=== PATIENT | female | born 1975 | race Caucasian/White ===

== ENCOUNTER → 2021-11-29 | Outpatient (CLI) | payer BC, OTHER ==
[~2021-11-29] MED LIST: HYDR-700 PO; PROP40TA5 PO
--- NOTE | 2021-11-29 14:42 | Diagnostic Imaging Report ---
INDICATION: COUGH COMPARISON: None FINDINGS: Frontal and lateral views of the chest demonstrate normal heart size and pulmonary vascularity. The lungs are hyperinflated, but are otherwise clear. There are no signs of infiltrate, pleural effusions or pneumothoraces. The visualized osseous structures show no acute abnormalities. IMPRESSION: 1. Hyper expanded appearance of the lungs. Correlation with obstructive process such as asthma is recommended. Otherwise, no evidence of failure or focal infiltrate. Dictated by: Dictated on workstation # [id number]
== END ==
LOC: RAD FS 13:15
PROVIDERS: ATTEND Nurse Practitioner Family
DX: R05.9 Cough, unspecified (principal)
CPT/HCPCS: 71046

== ENCOUNTER 2022-09-25 17:20 | Emergency (ER) | payer BC, OTHER ==
[~2022-09-25] VITALS: Ht 162 cm; Wt 45.0 kg
[2022-09-25] MEDS ORDERED: NS IV 1000 ML 1,000 ML IV STA (17:33)
--- NOTE | 2022-09-25 17:38 | ED Abdominal Pain ---
General Chief Complaint: Abdominal/GI Problems Stated Complaint: ABD PAIN Source of Information: Patient Exam Limitations: No Limitations History of Present Illness Date Seen by Provider: Sep 25, 2022 Time Seen by Provider: 17:23 Initial Comments 47-year-old female with past medical history of asthma, chronic abdominal pain, and frequent UTIs coming in due to abdominal pain. She states she was diagnosed with a UTI last week, finished her Bactrim yesterday, had continued symptoms, so was started on Macrobid. She has had 1 dose of this. Has constant nausea which is normal for her, worsening today. She took her last Zofran earlier today. She does smoke marijuana daily. Denies any current dysuria, urinary frequency, vaginal discharge or bleeding, chest pain, shortness of breath, diarrhea, focal weakness or numbness, fever, or any other concerns. Allergies and Home Medications Allergies Coded Allergies: Cephalexin Monohydrate (Verified Allergy, Unknown, 09/25/22) Penicillins (Verified Allergy, Unknown, 09/25/22) Patient Home Medication List Home Medication List Reviewed: Yes Hydroxyzine Hcl (Hydroxyzine 25 Mg Tablet) 25 Mg Tablet, 1-2 EACH PO Q4H PRN, (Reported) Entered as Reported by: RAINA KRUEGER on 09/18/11 105 Hyoscyamine Sulfate (Levsin-Sl) 0.125 Mg Tab.subl, 0.125 MG SL Q4H Prescribed by: DANNY STAFFORD on 09/25/221899 Ondansetron (Ondansetron Odt) 4 Mg Tab.rapdis, 4 MG SL Q6H PRN for NAUSEA/V OMITING-1ST LINE Prescribed by: DANNY STAFFORD on 09/25/221899 Pantoprazole Sodium (Pantoprazole Sodium) 40 Mg Tablet.dr, 40 MG PO DAILY Prescribed by: DANNY STAFFORD on 09/25/221899 Promethazine HCl (Promethazine Tablet) 25 Mg Tablet, 25 MG PO Q6H PRN for NAUSEA/VOMITING-2ND LINE Prescribed by: DANNY STAFFORD on 09/25/221899 Propranolol Hcl (Propranolol Hcl) 40 Mg Tablet, 40 MG PO BID, (Reported) Entered as Reported by: RAINA KRUEGER on 09/18/11 1051 Review of Systems Review of Systems Constitutional: No fever EENTM: No Blurred Vision Respiratory: No Symptoms Reported Cardiovascular: No Symptoms Reported Gastrointestinal: See HPI Genitourinary: No Symptoms Reported Musculoskeletal: no symptoms reported Skin: no symptoms reported Psychiatric/Neurological: No Symptoms Reported Endocrine: No Symptoms Reported Hematologic/Lymphatic: No Symptoms Reported All Other Systems Reviewed Negative Unless Noted: Yes Past Uhjtspj-Rvcqhr-Hoosko Hx Patient Social History Substance use?: Yes Substance type: Marijuana Alcohol Use?: No Past Medical History Surgeries: Yes Gallbladder, Tubal Ligation Reproductive Disorders: No Physical Exam Vital Signs Vital Signs - First Documented 09/25/22 17:38 Temp 36.7 Pulse 78 Resp 16 B/P (MAP) 125/93 (104) Pulse Ox 98 O2 Delivery Room Air Capillary Refill : Height/Weight/BMI Height: '" Weight: lbs. oz. kg; BMI Method:Stated General Appearance: WD/WN, mild distress HEENT: PERRL/EOMI, normal ENT inspection, pharynx normal Neck: non-tender, full range of motion, supple, normal inspection Respiratory: chest non-tender, lungs clear, normal breath sounds, no respiratory distress, no accessory muscle use Cardiovascular: regular rate, rhythm, no edema, no murmur Gastrointestinal: normal bowel sounds, soft; No distended, No guarding, No rebound; tenderness Extremities: normal range of motion, non-tender, normal inspection, no pedal edema, no calf tenderness, normal capillary refill Back: normal inspection, no CVA tenderness Neurologic/Psychiatric: no motor/sensory deficits, alert, normal mood/affect Skin: normal color, warm/dry Lymphatic: no adenopathy Progress/Results/Core Measures Results/Orders Lab Results Laboratory Tests Test 09/25/22 17:28 09/25/22 17:30 Range/Units Urine Color DARK YELLOW Urine Clarity CLEAR Urine pH 6.0 5-9 Urine Specific [place] 1.025 H 1.016-1.022 Urine Protein NEGATIVE NEGATIVE Urine Glucose (UA) NEGATIVE NEGATIVE Urine Ketones NEGATIVE NEGATIVE Urine Nitrite NEGATIVE NEGATIVE Urine Bilirubin 1+ H NEGATIVE Urine Urobilinogen 0.2 < = 1.0 MG/DL Urine Leukocyte Esterase NEGATIVE NEGATIVE Urine RBC (Auto) 1+ H NEGATIVE Urine RBC 2-5 H /HPF Urine WBC 0-2 /HPF Urine Squamous Epithelial Cells 2-5 /HPF Urine Crystals NONE /LPF Urine Bacteria TRACE /HPF Urine Casts NONE /LPF Urine Mucus MODERATE H /LPF Urine Culture Indicated NO White Blood Count 12.1 H 4.3-11.0 10^3/uL Red Blood Count 4.31 3.80-5.11 10^6/uL Hemoglobin 13.3 11.5-16.0 g/dL Hematocrit 39 35-52 % Mean Corpuscular Volume 91 80-99 fL Mean Corpuscular Hemoglobin 31 25-34 pg Mean Corpuscular Hemoglobin Concent 34 32-36 g/dL Red Cell Distribution Width 14.7 H 10.0-14.5 % Platelet Count 327 130-400 10^3/uL Mean Platelet Volume 10.0 9.0-12.2 fL Immature Granulocyte % (Auto) 0 % Neutrophils (%) (Auto) 66 42-75 % Lymphocytes (%) (Auto) 28 12-44 % Monocytes (%) (Auto) 5 0-12 % Eosinophils (%) (Auto) 1 0-10 % Basophils (%) (Auto) 0 0-10 % Neutrophils # (Auto) 7.9 H 1.8-7.8 10^3/uL Lymphocytes # (Auto) 3.4 1.0-4.0 10^3/uL Monocytes # (Auto) 0.6 0.0-1.0 10^3/uL Eosinophils # (Auto) 0.2 0.0-0.3 10^3/uL Basophils # (Auto) 0.0 0.0-0.1 10^3/uL Immature Granulocyte # (Auto) 0.0 0.0-0.1 10^3/uL Sodium Level 136 135-145 MMOL/L Potassium Level 3.6 3.6-5.0 MMOL/L Chloride Level 100 98-107 MMOL/L Carbon Dioxide Level 25 21-32 MMOL/L Anion Gap 11 5-14 MMOL/L Blood Urea Nitrogen 7 7-18 MG/DL Creatinine 0.74 0.60-1.30 MG/DL Estimat Glomerular Filtration Rate 100 BUN/Creatinine Ratio 9 Glucose Level 110 H 70-105 MG/DL Calcium Level 9.1 8.5-10.1 MG/DL Corrected Calcium 9.0 8.5-10.1 MG/DL Magnesium Level 2.1 1.6-2.4 MG/DL Total Bilirubin 0.4 0.1-1.0 MG/DL Aspartate Amino Transf (AST/SGOT) 12 5-34 U/L Alanine Aminotransferase (ALT/SGPT) 10 0-55 U/L Alkaline Phosphatase 76 40-136 U/L C-Reactive Protein 0.31 <0.50 MG/DL Total Protein 6.9 6.4-8.2 GM/DL Albumin 4.1 3.2-4.5 GM/DL Lipase 12 8-78 U/L Smear Scan OK My Orders Orders - DANNY STAFFORD MD Ua Culture If Indicated (09/25/22 17:26) Ct Abdomen/Pelvis W (09/25/22 17:33) Cbc With Automated Diff (09/25/22:) Comprehensive Metabolic Panel (09/25/22:) Lipase (09/25/22:) Magnesium (09/25/22 17:33) Crp Fs (09/25/22 17:33) Droperidol Inj (Ed Only) (Inapsine Inj ( (09/25/22 17:45) Ketorolac Injection (Toradol Injection) (09/25/22 17:45) Ns Iv 1000 Ml (Sodium Chloride 0.9%) (09/25/22 17:33) Iohexol Injection (Omnipaque 350 Mg/Ml 1 (09/25/22 18:30) Received Contrast (Hold Metformin- Contr (09/25/22 18:30) Ns (Ivpb) (Sodium Chloride 0.9% Ivpb Bag (09/25/22 18:30) Medications Given in ED Current Medications Medications Dose Ordered Sig/Jessy Route Start Time Stop Time Status Last Admin Dose Admin Droperidol 2.5 mg ONCE ONCE IV 09/25/22 17:45 09/25/22 17:46 DC 09/25/22 17:42 2.5 MG Iohexol 75 ml ONCE ONCE IV 09/25/22 18:30 09/25/22 18:36 DC 09/25/22 18:32 75 ML Ketorolac Tromethamine 15 mg ONCE ONCE IVP 09/25/22 17:45 09/25/22 17:46 DC 09/25/22 17:43 15 MG Sodium Chloride 100 ml ONCE ONCE IV 09/25/22 18:30 09/25/22 18:36 DC 09/25/22 18:32 100 ML Vital Signs/I&O 09/25/22 17:38 Temp 36.7 Pulse 78 Resp 16 B/P (MAP) 125/93 (104) Pulse Ox 98 O2 Delivery Room Air Progress Progress Note : Progress Note 47-year-old female with above history coming in due to abdominal pain. ABCs were intact and vitals were stable on presentation. Physical exam mostly with lower abdominal discomfort. An IV was placed and she was given Toradol for pain and droperidol for nausea. An IV was placed and basic labs were obtained including a mildly elevated white blood cell count, urinalysis with negative nitrites and negative leukocyte esterase. CT abdomen pelvis with signs of potential gastritis and mild left-sided hydronephrosis with no obstruction. On reassessment her pain was gone and she was feeling better. I believe the patie nt is stable for discharge with outpatient follow-up. She was sent home with strict return precautions Diagnostic Imaging Diagonstic Imaging: CT (abd/pelv) Comments 47-year-old female with above history coming in due to abdominal pain. ABCs were intact and vitals were stable on presentation. Physical exam mostly with lower abdominal discomfort. An IV was placed and she was given Toradol for pain and droperidol for nausea. Departure Impression Primary Impression: Abdominal pain Qualified Codes: R10.84 - Generalized abdominal pain Additional Impression: Gastritis Qualified Codes: K29.00 - Acute gastritis without bleeding Disposition: HOME, SELF-CARE Condition: Stable Departure-Patient Inst. Decision time for Depature: 18:57 Referrals: AMAYA WEBSTER APRN (PCP) Primary Care Physician [facility] (Family) Primary Care Physician Patient Instructions: Gastritis ED Add. Discharge Instructions: There did appear to be some inflammation around your stomach which can cause nausea, and pain. Nausea medicines as well as an antacid was sent to your pharmacy. Follow-up with your regular doctor in the next couple days if you are not improving. I do recommend continuing to finish your antibiotics. Scripts Promethazine HCl (Promethazine Tablet) 25 Mg Tablet 25 MG PO Q6H PRN for NAUSEA/VOMITING-2ND LINE for 5 Days, #20 TAB Prov: DANNY STAFFORD MD 09/25/22 Ondansetron (Ondansetron Odt) 4 Mg Tab.rapdis 4 MG SL Q6H PRN for NAUSEA/VOMITING-1ST LINE for 5 Days, #20 TAB Prov: DANNY STAFFORD MD 09/25/22 Hyoscyamine Sulfate (Levsin-Sl) 0.125 Mg Tab.subl 0.125 MG SL Q4H for 7 Days, #42 TAB 0 Refills Prov: DANNY STAFFORD MD 09/25/22 Pantoprazole Sodium (Pantoprazole Sodium) 40 Mg Tablet.dr 40 MG PO DAILY for 30 Days, #30 TAB Prov: DANNY STAFFORD MD 09/25/22 Work/School Note: Work Release Form Date Seen in the Emergency Department: Sep 25, 2022 Return to Work: Sep 26, 2022 Restrictions: Return-No Vomiting(24hrs) DANNY STAFFORD MD Sep 25, 2022 17:38
[2022-09-25 17:39] LABS: CLARITY,URINE CLEAR; GLUCOSE, URINE (UA) NEGATIVE (NEGATIVE); KETONES,URINE NEGATIVE (NEGATIVE); LEUKOCYTE ESTERASE ,URINE NEGATIVE (NEGATIVE); NITRITE,URINE NEGATIVE (NEGATIVE); PROTEIN,URINE NEGATIVE (NEGATIVE)
[2022-09-25 17:40] LABS: BASOPHILS % (AUTO) 0 % (0-10); EOSINOPHILS # (AUTO) 0.2 10^3/uL (0.0-0.3); EOSINOPHILS % (AUTO) 1 % (0-10); HEMATOCRIT 39 % (35-52); HEMOGLOBIN 13.3 g/dL (11.5-16.0); LYMPHOCYTES # (AUTO) 3.4 10^3/uL (1.0-4.0); LYMPHOCYTES % (AUTO) 28 % (12-44); MEAN CORPUSCULAR HEMOGLOBIN 31 pg (25-34); MEAN CORPUSCULAR HGB CONC 34 g/dL (32-36); MEAN CORPUSCULAR VOLUME 91 fL (80-99); MONOCYTES # (AUTO) 0.6 10^3/uL (0.0-1.0); MONOCYTES % (AUTO) 5 % (0-12); NEUTROPHILS # (AUTO) 7.9 10^3/uL (1.8-7.8); NEUTROPHILS % (AUTO) 66 % (42-75); PLATELET COUNT 327 10^3/uL (130-400); WHITE BLOOD COUNT 12.1 10^3/uL (4.3-11.0)
[2022-09-25] MEDS ORDERED: DROPERIDOL 5 MG/2 ML (INAPSINE) ED ONLY! IV ONE (17:45)
[2022-09-25] MEDS ORDERED: KETOROLAC 30 MG/ML VIAL IVP ONE (17:45)
[2022-09-25 17:55] LABS: BILIRUBIN,URINE 1+ (NEGATIVE); COLOR,URINE DARK YELLOW
[2022-09-25 17:56] LABS: BACTERIA,URINE TRACE /HPF; WBC,URINE 0-2 /HPF
[2022-09-25 18:05] LABS: POTASSIUM 3.6 MMOL/L (3.6-5.0)
[2022-09-25 18:06] LABS: ALBUMIN 4.1 GM/DL (3.2-4.5); BILIRUBIN,TOTAL 0.4 MG/DL (0.1-1.0); CALCIUM 9.1 MG/DL (8.5-10.1); CREATININE SERUM 0.74 MG/DL (0.60-1.30); MAGNESIUM 2.1 MG/DL (1.6-2.4); TOTAL PROTEIN 6.9 GM/DL (6.4-8.2)
[2022-09-25 18:12] LABS: SMEAR SCAN COMMENT OK
[2022-09-25] MEDS ORDERED: IOHEXOL 350 MG/ML 100 ML (OMNIPAQUE 350) VIAL IV ONE (18:30)
[2022-09-25] MEDS ORDERED: NS 100 ML (IVPB) BAG IV ONE (18:30)
[2022-09-25] MEDS ORDERED: HOLD METFORMIN - RECEIVED CONTRAST 20 ML VIAL IV SCH (18:30)
--- NOTE | 2022-09-25 18:48 | Diagnostic Imaging Report ---
PROCEDURE: CT abdomen and pelvis with contrast. TECHNIQUE: Multiple contiguous axial images were obtained through the abdomen and pelvis after administration of intravenous contrast. Auto Exposure Controls were utilized during the CT exam to meet ALARA standards for radiation dose reduction. All CT scans use one or more of the following dose optimizing techniques: automated exposure control, MA and/or KvP adjustment based on patient size and exam type or iterative reconstruction. INDICATION: Abdominal pain and hematuria with leukocytosis. FINDINGS: There is mild intrahepatic and extrahepatic biliary ductal dilatation. This may be due to reservoir effect in patient post cholecystectomy. Otherwise, no focal hepatic, pancreatic, adrenal gland or splenic lesion is identified. Right kidney is unremarkable in appearance. Left kidney demonstrates mild hydronephrosis without definite stone or mass. No perinephric inflammation is identified. No bladder stone is seen. Urinary bladder is incompletely distended which limits evaluation. There is mild heterogeneous appearance of the uterus which could be related to fibroid change or hormonal effect. There is possible mural thickening at the level of the gastric antrum. There is focal L5-S1 degenerative disc disease with mild L4-L5 disc bulging and endplate spurring. IMPRESSION: 1. Suggestion of gastric antral mural thickening which may represent gastritis. Clinical correlation would be of use. 2. There is mild left hydronephrosis of uncertain chronicity; however, no obstructive uropathy is identified. Dictated by: Dictated on workstation # [id number]
[2022-09-25] MEDS ORDERED: HYOS0.1283 SL (19:00)
[2022-09-25] MEDS ORDERED: PANT40TA52 PO (19:00)
[2022-09-25] MEDS ORDERED: ONDA4TAB11 SL (19:00)
[2022-09-25] MEDS ORDERED: PROM25TA14 PO (19:00)
[2022-09-25 19:12] VITALS: BP 125/93
== END 2022-09-25 19:12 | disposition home or self-care (01) ==
LOC: EDUNIT# 17:20 → ER FS 17:21
DX: K29.70 Gastritis, unspecified, without bleeding (principal); N13.30 Unspecified hydronephrosis
CPT/HCPCS: 36415; 74177; 80053; 81000; 83690; 83735; 84703; 85025; 86141; 96374; 96375; Q9967

== ENCOUNTER → 2022-10-22 | Outpatient (CLI) | payer OTHER ==
[~2022-10-22] MED LIST changes: +GADOTERATE 0.5 MMOL/ML (CLARISCAN) 15 ML VIAL IV ONE; +GADOTERATE 0.5 MMOL/ML (CLARISCAN) 20 ML VIAL IV ONE; +HYOS0.1283 SL; +ONDA4TAB11 SL; +PANT40TA52 PO; +PROM25TA14 PO
--- NOTE | 2022-10-22 11:10 | Diagnostic Imaging Report ---
Clinical indications: Patient with short-term memory loss, headaches, and brain fog. Exam: MRI of the brain performed without and with 8 cc of Clariscan IV contrast. Sequences include axial DWI, ADC map, coronal gradient echo, axial FLAIR, axial T1, axial T2, axial T1 post IV contrast whole brain, coronal T1 fat-sat post IV contrast whole brain, and sagittal T1 fat-sat post IV contrast whole brain. Comparison: None. Findings: There is no evidence of acute cerebral infarct, intracranial hemorrhage, or gross mass effect. The brain parenchymal volume appears appropriate for patient's age. There are a few focal areas of high T2 signal white matter changes involving the subcortical regions of both frontal lobes which are nonspecific. There is normal singleton-white matter distinction. There is no significant midline shift or herniation. The [place] vascular structures show no gross abnormality as visualized. The pituitary gland, sella, and suprasellar regions are unremarkable as visualized. There is no evidence of hydrocephalus. The basal cisterns are unremarkable. The skull, extracranial soft tissue, and orbits are unremarkable. The paranasal sinuses are unremarkable. Temporal bones show no significant abnormality. IMPRESSION: 1: There is no evidence of acute intracranial process. There is no abnormal IV contrast enhancement. 2: There are a few nonspecific focal areas of high T2 signal white matter changes in the subcortical regions of both frontal lobes. Dictated by: Dictated on workstation # [id number]
== END ==
LOC: RAD 10-15 13:00
PROVIDERS: ATTEND Nurse Practitioner Family
DX: R53.83 Other fatigue (principal); R20.2 Paresthesia of skin; R25.1 Tremor, unspecified; R29.898 Other symptoms and signs involving the musculoskeletal system; R41.840 Attention and concentration deficit; R41.89 Other symptoms and signs involving cognitive functions and awareness; R41.9 Unspecified symptoms and signs involving cognitive functions and awareness
CPT/HCPCS: 70553

== ENCOUNTER 2023-05-05 05:33 | Outpatient (CLI) | payer MEDICAID ==
[~2023-05-05] VITALS: Ht 165.1 cm; Wt 45.5 kg
[~2023-05-05 05:33] MED LIST changes: -GADOTERATE 0.5 MMOL/ML (CLARISCAN) 15 ML VIAL IV ONE; -GADOTERATE 0.5 MMOL/ML (CLARISCAN) 20 ML VIAL IV ONE
[2023-05-05] MEDS ORDERED: GABA-486 PO (13:15)
[2023-05-05] MEDS ORDERED: DESV50TA8 PO (13:15)
[2023-05-05] MEDS ORDERED: QUET200T29 PO (13:54)
[2023-05-05] MEDS ORDERED: AZEL23SP2 NS (13:54)
[2023-05-05] MEDS ORDERED: BUSP10TA95 PO (13:54)
[2023-05-05] MEDS ORDERED: FLUT1BLS9 IH (13:54)
[2023-05-05] MEDS ORDERED: EPIN0.3P18 IJ (13:54)
[2023-05-05] MEDS ORDERED: FLUT15.845 NS (13:54)
[2023-05-05] MEDS ORDERED: RT-ALBUINH INH (13:54)
[2023-05-05] MEDS ORDERED: NYST1000 PO (13:54)
== END 2023-05-05 13:57 ==
LOC: PREOP 05:33
PROVIDERS: ATTEND Obstetrics & Gynecology
DX: Z01.818 Encounter for other preprocedural examination (principal)

== ENCOUNTER 2023-05-12 08:42 | Day surgery (SDC) | payer MEDICAID ==
[~2023-05-12] VITALS: Ht 165.1 cm; Wt 45.5 kg
[2023-05-12] VITALS (12 sets, daily range): BP systolic 82–167; BP diastolic 23–94
[~2023-05-12 08:42] MED LIST changes: +AZEL23SP2 NS; +BUSP10TA95 PO; +DESV50TA8 PO; +EPIN0.3P18 IJ; +FLUT15.845 NS; +FLUT1BLS9 IH; +GABA-486 PO; +NYST1000 PO; +QUET200T29 PO; +RT-ALBUINH INH
[2023-05-12] MEDS ORDERED: CLINDAMYCIN 600 MG/50 ML IVPB 50 ML IV ONE (09:15)
[2023-05-12] MEDS ORDERED: metroNIDAZOLE 500MG/100ML IVPB 100 ML IV ONE (09:15)
[2023-05-12] MEDS ORDERED: LACTATED RINGERS 1,000 ML IV PRN (09:15)
[2023-05-12 09:25] LABS: BASOPHILS # (AUTO) 0.1 10^3/uL (0.0-0.1); BASOPHILS % (AUTO) 1 % (0-10); EOSINOPHILS # (AUTO) 0.1 10^3/uL (0.0-0.3); EOSINOPHILS % (AUTO) 1 % (0-10); HEMATOCRIT 45 % (35-52); HEMOGLOBIN 15.4 g/dL (11.5-16.0); LYMPHOCYTES # (AUTO) 2.1 10^3/uL (1.0-4.0); LYMPHOCYTES % (AUTO) 19 % (12-44); MEAN CORPUSCULAR HEMOGLOBIN 31 pg (25-34); MEAN CORPUSCULAR HGB CONC 34 g/dL (32-36); MEAN CORPUSCULAR VOLUME 91 fL (80-99); MEAN PLATELET VOLUME 9.5 fL (9.0-12.2); MONOCYTES # (AUTO) 0.4 10^3/uL (0.0-1.0); MONOCYTES % (AUTO) 4 % (0-12); NEUTROPHILS # (AUTO) 8.3 10^3/uL (1.8-7.8); NEUTROPHILS % (AUTO) 75 % (42-75); PLATELET COUNT 393 10^3/uL (130-400)
[2023-05-12] MEDS ORDERED: SCOPOLAMINE 1.5 MG (TRANSDERM-SCOP) PATCH ONE (10:01)
[2023-05-12] MEDS ORDERED: ONDANSETRON 4 MG/2 ML (SDV) Z0FRAN ONE ×2 (10:01→11:41)
[2023-05-12] MEDS ORDERED: MIDAZOLAM 2 MG/2 ML (VERSED) VIAL ONE ×2 (10:01→11:41)
[2023-05-12] MEDS ORDERED: FAMOTIDINE 20MG/2ML IV (PEPCID) ONE (10:02)
[2023-05-12] MEDS ORDERED: ONDANSETRON 4 MG/2 ML (SDV) Z0FRAN IV ONE (10:15)
[2023-05-12] MEDS ORDERED: FAMOTIDINE 20MG/2ML IV (PEPCID) IV ONE (10:15)
[2023-05-12] MEDS ORDERED: MIDAZOLAM 2 MG/2 ML (VERSED) VIAL IV ONE (10:15)
[2023-05-12] MEDS ORDERED: SCOPOLAMINE 1.5 MG (TRANSDERM-SCOP) PATCH TOP ONE (10:15)
[2023-05-12] MEDS ORDERED: BUPIVACAINE 0.25% 30 ML (SENSORCAINE) VIAL ONE (11:30)
[2023-05-12] MEDS ORDERED: fentaNYL INJ 100 MCG/2 ML AMP ONE (11:41)
[2023-05-12] MEDS ORDERED: proPOfol 200 MG/20 ML (DIPRIVAN) VIAL IV ONE (11:41)
[2023-05-12] MEDS ORDERED: SEVOFLURANE (ULTANE) 15 ML INHAL SOLN ONE ×2 (11:41→13:34)
[2023-05-12] MEDS ORDERED: LIDOCAINE PF 2% 5 ML (XYLOCAINE) VIAL ONE (11:41)
--- NOTE | 2023-05-12 12:21 | Progress Note-Pre Operative ---
Pre-Operative Progress Note Date of Available H&P: May 12, 2023 Date H&P Reviewed: May 12, 2023 Time H&P Reviewed: 12:00 History & Physical: H&P Reviewed, Patient Examed, No changes noted Pre-Operative Diagnosis: AUB, CPP, Dysmenorrhea ABAD CARTER DO May 12, 2023 12:21
--- NOTE | 2023-05-12 12:22 | Discharge Inst-Women's Service ---
Discharge Inst-Women's Serv Depart Medication/Instructions New, Converted or Re-Newed RX: Transmitted to Pharmacy Problems Reviewed?: Yes Consults/Follow Up Additional Follow Up: Yes Orders/Referrals Dr. Bell in 7-10 days and 8 weeks Activity Activity: Activity as Tolerated Driving Instructions: No Driving for 1 Week NO SMOKING: NO SMOKING Nothing Inside Vagina: No Douching, No [place], No Tampons Diet Discharge Diet: No Restrictions Symptoms to Report to : Bleeding Excessive, Pain Increased, Fever Over 101 Degrees F, Vaginal Bleeding Increase, Questions/Concerns For Any Problems or Questions: Contact Your Physician Skin/Wound Care Infection Signs and Symptoms: Increased Redness, Foul Odor of Wound, Increased Drainage, Skin Itchy or Has a Rash, Increased Swelling, Temperature Above 101 F Operative Area Clean and Dry: Keep Incision Clean/Dry Stitches/Fly/Dermabond: Dermabond, Care of Stitches Bathing Instructions: ABAD Maria DO May 12, 2023 12:22
[2023-05-12] MEDS ORDERED: SIME80TA16 PO (12:23)
[2023-05-12] MEDS ORDERED: HYDR-34 PO (12:23)
[2023-05-12] MEDS ORDERED: IBUP-844 PO (12:23)
[2023-05-12] MEDS ORDERED: DOCU100C37 PO (12:23)
[2023-05-12] MEDS ORDERED: HYDROcodone/APAP 7.5 MG/325 MG (LORTAB, LORCET PLUS) TABLET PO PRN (12:30)
[2023-05-12] MEDS ORDERED: PHENYLEPHRINE 100 MCG/ML 10 ML (ANESTHESIA) SYR ONE (12:30)
[2023-05-12] MEDS ORDERED: ANTACID SUSP 30 ML UDC (MYLANTA) PO PRN (12:30)
[2023-05-12] MEDS ORDERED: KETOROLAC 30 MG/ML VIAL IVP PRN (12:30)
[2023-05-12] MEDS ORDERED: LACTATED RINGERS 1,000 ML IV SCH (12:30)
[2023-05-12] MEDS ORDERED: ONDANSETRON 4 MG/2 ML (SDV) Z0FRAN IV PRN (12:30)
[2023-05-12] MEDS ORDERED: SIMETHICONE 80 MG (MYLICON) CHEW PO PRN (12:30)
[2023-05-12] MEDS ORDERED: ZOLPIDEM 5 MG (AMBIEN) TAB PO PRN (12:30)
[2023-05-12] MEDS ORDERED: DOCUSATE SODIUM 100 MG (COLACE) CAP PO PRN (12:30)
[2023-05-12] MEDS ORDERED: IBUPROFEN 600 MG (MOTRIN) TAB PO PRN (12:30)
[2023-05-12] MEDS ORDERED: BENZOCAINE LOZENGES 1 EACH LOZENGE MM PRN (12:30)
[2023-05-12] MEDS ORDERED: GLYCOPYRROLATE 0.2 MG/ML (ROBINUL) 2 ML VIAL ONE (12:45)
[2023-05-12] MEDS ORDERED: HYDROmorphone 2 MG/ML VIAL (DILAUDID) ONE (12:56)
[2023-05-12] MEDS ORDERED: SUGAMMADEX 500 MG/5 ML VIAL (BRIDION) IV ONE (13:27)
[2023-05-12] MEDS ORDERED: HYDROmorphone 2 MG/ML VIAL (DILAUDID) IV ONE (14:00)
[2023-05-12] MEDS ORDERED: ONDANSETRON 4 MG/2 ML (SDV) Z0FRAN IVP PRN (14:00)
[2023-05-12] MEDS ORDERED: KETOROLAC 30 MG/ML VIAL ONE (14:26)
--- NOTE | 2023-05-13 00:41 | OPERATIVE REPORT ---
DATE OF SERVICE: 05/12/2023 PREOPERATIVE DIAGNOSES: 1. A 47-year-old female with chronic pelvic pain. 2. Dysmenorrhea. 3. Abnormal uterine bleeding. POSTOPERATIVE DIAGNOSES: 1. A 47-year-old female with chronic pelvic pain. 2. Dysmenorrhea. 3. Abnormal uterine bleeding. 4. Endometriosis. PROCEDURES: Robotic-assisted total laparoscopic hysterectomy with bilateral salpingo-oophorectomy. SURGEON: Artur Bell DO DATA GOVERNANCE ANALYST: Bibi Mann DNP, who was necessary for manipulation and retraction throughout the procedure. ANESTHESIA: General endotracheal. ESTIMATED BLOOD LOSS: Minimal. URINE OUTPUT: 30 mL, clear at the end of procedure. FLUIDS: 1500 mL lactated Ringer's solution. FINDINGS: Grossly normal-appearing uterus, bilateral fallopian tubes, and ovaries with endometriosis implants of the posterior cul-de-sac, peritoneum. SPECIMEN SENT: Uterus, bilateral fallopian tubes and ovaries. INDICATIONS FOR PROCEDURE: This 47-year-old female patient who had sought care in my office for chronic pelvic pain, dysmenorrhea. She had undergone more conservative measures in the past, all of which had failed with no improvement. She wished to proceed with more definitive measures for her ongoing issues with chronic pelvic pain, dysmenorrhea, and dyspareunia. Risks of hysterectomy were discussed with the patient in detail as she was suggesting this as the next alternative. Risks of bleeding, infection, damage to surrounding structures including but not limited to bowel, bladder, ureter, kidneys, possible need for reoperation, postoperative complications that may occur, recovery timeframe, risk from anesthesia, and even were all discussed with the patient in detail. After all of her questions were answered, consent was obtained, the patient was taken to the operating room. OPERATIVE REPORT IN DETAIL: Once in the operating room, general anesthesia was found to be adequate. She was placed in the dorsal lithotomy position, prepped and draped in normal sterile fashion. A timeout was performed. A Little catheter was placed using sterile technique. A weighted speculum inserted to the patient's vagina. Right angle retractor was used to visualize the cervix which was grasped at 12 o'clock position using a long Allis clamp. An 0 Vicryl suture was then placed at the anterior lip of the cervix and used as my retraction point. I then gently sounded the uterine cavity depth, found to be 8 cm. I selected an 8 cm BELLA uterine manipulator tip and a 3.5 cm colpotomy ring. The manipulator tip was advanced into the uterus where the balloon was deployed and the colpotomy ring was advanced around the vaginal fornix. I then removed all the other instruments from the patient's vagina, performed change of gloves. I turned my attention to the abdomen where subcostally on the left side at the midclavicular line, I introduced a Veress needle through the skin. Intraperitoneal placement was confirmed using saline drop test. An opening pressure of 5 mmHg was noted using CO2 gas. I proceeded to a maximum pressure of 15 mmHg. I then made an infraumbilical incision with a knife that is 8 mm and introduced an 8 mm blunt laparoscopic da Julio Cesar camera trocar through the incision until intraperitoneal placement was confirmed using da Julio Cesar laparoscope. There was no evidence of damage upon my entry site, there was no evidence of damage upon the Veress entry site. A brief scan of upper abdominal anatomy was grossly normal. I then had the patient placed in steep Trendelenburg while I had to visualize all my pelvic anatomy as defined in my findings above. I placed 2 lateral trocars approximately 10 cm lateral to my infraumbilical trocar. Once both of these trocars were placed, I bring in the da Julio Cesar robot and docked in appropriate fashion, placing the SynchroSeal device in the left hand, monopolar vasquez in the right hand, I performed the following dissection bilaterally. Starting at the IP ligament, I sealed and transected this using the SynchroSeal device. I then grasped the round ligament which I sealed and transected using the SynchroSeal device. I then grasped the entire broad ligament which I sealed and transected using the SynchroSeal device down to the level of the lower uterine segment, at which point I the anterior and posterior leaflets of the broad ligament. Anterior leaflet was taken around the anterior vaginal fornix, posterior leaflet taken around the posterior vaginal fornix. This allowed me to skeletonize uterine vessels laterally, which I sealed and transected using the SynchroSeal device. I then created a colpotomy at 12 o'clock position using monopolar vasquez, taking circumferentially around the vaginal fornix, amputating the cervix away from the vagina. I then removed the entire specimen through the vagina. The vaginal cuff was then closed using 2-0 V-Loc in a running fashion. colposuspending it through the uterosacral ligament. I then undocked da Julio Cesar robot and proceeded with remainder of the case laparoscopically. I copiously irrigated the pelvis using normal saline. Once again, there was no active bleeding noted from any of my dissection planes. I placed Surgiflo hemostatic agent over all my planes of dissection, removed the lateral trocars under direct visualization with laparoscope, and had the patient taken out of steep Trendelenburg. I then left the infraumbilical trocar in place to release the remainder of insufflation and to introduce 10 mL of 0.25% Marcaine in the peritoneal cavity for postoperative pain management, then removed this trocar as well. The skin reapproximated using 4-0 Monocryl interrupted subcuticular stitches. Dermabond was applied to incision, sterile dressing with adhesive white tape. The patient tolerated the procedure well and sent to recovery area in stable condition. Lap and sponge counts were correct at the end of the procedure. Instrument counts correct as well. Little catheter was left in place. A 600 mg of clindamycin and 500 mg of Flagyl were given preoperatively for infection prophylaxis. Job ID: [id number] DocumentID: [id number] Dictated Date: 05/12/2023 13:40:31 Organ Pipe Finisher Date: 05/12/2023 20:03:00 Dictated By: DO VIOLA JULES
--- NOTE | 2023-05-13 09:57 | Anesthesia-General Post-Op ---
General Post Op Complications Complications None Follow Up Care/Instructions Patient Instructions None needed. Anesthesia/Patient Condition Patient Condition Patient Discharged prior to interview. Chart reviewed. No apparent anesthesia complication. MART LEES CRNA May 13, 2023 09:57
== END 2023-05-12 18:36 | disposition home or self-care (01) ==
LOC: SDC 08:42 → WS 14:49 → SDC 18:36
PROVIDERS: ATTEND Obstetrics & Gynecology
DX: D25.1 Intramural leiomyoma of uterus (principal); N80.03 Adenomyosis of the uterus; N94.6 Dysmenorrhea, unspecified; N93.9 Abnormal uterine and vaginal bleeding, unspecified; N95.1 Menopausal and female climacteric states; G89.29 Other chronic pain; N94.89 Other specified conditions associated with female genital organs and menstrual cycle; N83.12 Corpus luteum cyst of left ovary; F17.210 Nicotine dependence, cigarettes, uncomplicated; F32.81 Premenstrual dysphoric disorder
CPT/HCPCS: 36415; 84703; 85025; 86850; 86900; 86901; 87081

== ENCOUNTER → 2023-07-21 | Outpatient (CLI) | payer MEDICAID ==
[~2023-07-21] MED LIST changes: +DOCU100C37 PO; +GADOBUTROL 10 MMOL/10 ML (GADAVIST) VIAL IV ONE; +HYDR-34 PO; +IBUP-844 PO; +SIME80TA16 PO
--- NOTE | 2023-07-23 10:57 | Diagnostic Imaging Report ---
EXAMINATION: MRI BREAST BILAT W W/O CON INDICATION: Problem solving MRI. Nonspontaneous left nipple discharge that is described as being white to dark red in color. No personal history of breast cancer. Patient reports history of postmenopausal breast cancer in an aunt. TECHNIQUE: Utilizing a 1.5 Ivis magnet, the patient was placed in the prone position with a dedicated breast coil in place. Axial STIR, T2 fat sat, T1 and T1 fat-sat images are obtained without contrast. Postcontrast high-resolution dynamic images are also obtained. Pre and post contrasted images are then evaluated with 3scale for evaluation of possible angiogenesis. 5 mL of Gadavist gadolinium contrast material was administered intravenously. COMPARISON: Diagnostic mammogram and ultrasound performed on 06/23/2023. FINDINGS: The breasts are composed of extreme fibroglandular tissue. There is mild background parenchymal enhancement, with scattered foci of enhancement also related to background. Bilateral retropectoral saline implants are in place and appear intact. There is no suspicious mass or non-mass enhancement in either breast. There is no axillary or internal mammary adenopathy. IMPRESSION: No MR evidence of malignancy and no findings to account for the patient's left nipple discharge. Further management of the patient's left breast symptoms, including the need for breast surgical consultation, should be based on clinical findings. BI-RADS Category 2: Benign RECOMMENDATIONS: Continued surveillance with annual screening mammogram, for which the patient will be due in June,. Dictated by: Dictated on workstation # [id number]
== END ==
LOC: RAD 08:45
PROVIDERS: ATTEND Nurse Practitioner Women's Health
DX: N64.52 Nipple discharge (principal); Z78.0 Asymptomatic menopausal state
CPT/HCPCS: 77049

== ENCOUNTER 2023-08-04 11:07 | Outpatient (CLI) | payer MEDICAID ==
[~2023-08-04] VITALS: Ht 165.1 cm; Wt 48.1 kg
[~2023-08-04 11:07] MED LIST changes: -GADOBUTROL 10 MMOL/10 ML (GADAVIST) VIAL IV ONE
[2023-08-04] MEDS ORDERED: PROM25PO MC (13:54)
[2023-08-04] MEDS ORDERED: PANT40GR PO (13:55)
[2023-08-04] MEDS ORDERED: NALT50TA PO (14:16)
== END 2023-08-04 14:22 | disposition home or self-care (01) ==
LOC: PREOP 11:07
PROVIDERS: ATTEND Surgery
DX: Z01.818 Encounter for other preprocedural examination (principal)